=== PATIENT | male | born 1950 | race Caucasian/White ===

== ENCOUNTER 2021-04-28 10:38 | Observation (INO) | payer MEDICARE, BC ==
[~2021-04-28] VITALS: Ht 170.2 cm; Wt 77.1 kg
[~2021-04-28 10:38] MED LIST: EFFEXOR XR150 MG PO; FLOMAX0.4 MG PO; HYDROCODONE-AP1 EAC6 PO; PEPCID20 MG PO; PERCOCET PO; POTASSIUM20 PO; TENORMIN50 MG PO; ZOFRAN ODT4 MG PO
[2021-04-28 10:47] VITALS: BP 209/99
[2021-04-28 10:59] LABS: URINE BLOOD 3+ (Negative); URINE CLARITY CLEAR; URINE COLOR YELLOW; URINE GLUCOSE-RANDOM NEGATIVE (Negative); URINE KETONES NEGATIVE (Negative); URINE LEUKOCYTES-REFLEX NEGATIVE (Negative); URINE NITRITE-REFLEX NEGATIVE (Negative); URINE PROTEIN 1+ (Negative); URINE SPECIFIC GRAVITY >= 1.030 (1.005-1.030); URINE UROBILINOGEN 0.2 E.U./dl (0.2-1.0)
[2021-04-28 11:02] LABS: ICTOTEST (BILI CONFIRMATORY) Negative (Negative); URINE BILIRUBIN 1+ (Negative)
[2021-04-28 11:03] LABS: BACTERIA-REFLEX 1-9 Few /HPF (None Seen); CASTS None Seen /LPF (None Seen); CRYSTALS None Seen /LPF (None Seen); SQUAMOUS 0-3 Few /LPF (0-3); URINE RBC 0-2 Rare /HPF (0-2); URINE WBC-REFLEX 0-5 Rare /HPF (0-5)
[2021-04-28 11:10] LABS: ABSOLUTE BASOPHILS 0.1 thou/uL (0.0-0.2); ABSOLUTE EOSINOPHILS 0.1 thou/uL (0.0-0.7); ABSOLUTE LYMPHOCYTES 0.8 thou/uL (0.8-5.3); ABSOLUTE MONOCYTES 0.7 thou/uL (0.0-1.2); ABSOLUTE NEUTROPHILS 7.7 thou/uL (1.6-8.1); HEMATOCRIT 33.6 % (42.0-52.0); HEMOGLOBIN 11.3 gm/dL (14.0-18.0); LYMPHOCYTES 8.9 %; MCH 28.2 pg (26.0-34.0); MCHC 33.7 g/dL (28.0-37.0); MCV 83.9 fL (80.0-100.0); MONOCYTES 7.2 %; MPV 7.2 fl. (7.2-11.1); NUCLEATED RBCS 0 /100WBC; PLATELET COUNT* 232 thou/uL (150-400); POLYS 81.9 %; RDW-CV 14.1 % (10.5-14.5); WBC 9.4 thou/uL (4.0-11.0)
[2021-04-28 11:19] LABS: CALCIUM 8.6 mg/dL (8.5-10.1); CREATININE 1.2 mg/dL (0.6-1.3); POTASSIUM 3.7 mmol/L (3.5-5.1)
[2021-04-28 11:25] LABS: TOTAL BILIRUBIN 0.4 mg/dL (<0.1-1.0); TOTAL PROTEIN 7.3 g/dL (6.4-8.2)
[2021-04-28 14:40] VITALS: BP 172/69
[2021-04-28 14:45] VITALS: BP 175/81
[2021-04-28 15:38] VITALS: BP 175/81
[2021-04-28 20:30] VITALS: BP 143/65
[2021-04-29 03:56] VITALS: BP 143/65
[2021-04-29 04:45] LABS: HEMATOCRIT 27.8 % (42.0-52.0); HEMOGLOBIN 9.6 gm/dL (14.0-18.0); MCH 29.3 pg (26.0-34.0); MCHC 34.6 g/dL (28.0-37.0); MCV 84.7 fL (80.0-100.0); MPV 7.5 fl. (7.2-11.1); RBC 3.28 mil/uL (4.50-6.00); RDW-CV 13.8 % (10.5-14.5); WBC 8.8 thou/uL (4.0-11.0)
[2021-04-29 04:55] LABS: CALCIUM 7.9 mg/dL (8.5-10.1); CREATININE 1.4 mg/dL (0.6-1.3); POTASSIUM 3.8 mmol/L (3.5-5.1)
[2021-04-29 08:00] VITALS: BP 146/64
--- NOTE | 2021-04-29 10:54 | EKG ---
[place] [address] ELECTROCARDIOGRAM REPORT Name: SARA BARRERA Tristen JR Room: [address]R.#: [id number] Admission: 04/28/21 Attend Phys: Patricio Cornell Discharge: Date of : 46 Date of Service: 04/28/21 1102 Report #: [id number] THIS REPORT FOR: //name// [facility] ED Test Date: 2021-04-28 Test Time: 11:02:04 Pat Name: SARA BARRERA Department: Room: [facility] Gender: M Customer Relations Assistant: : 1950 Requested By: Dagoberto Kline Order Number: [id number] MD: Darrell Ivey Measurements Intervals [place] Rate: 92 P: 31 MO: 165 QRS: 17 QRSD: 86 T: 86 QT: 368 QTc: 456 Interpretive Statements Sinus rhythm Probable LVH with secondary repol abnrm Compared to ECG 12/26/2015 19:14:41 No significant changes Electronically Signed On 04-29-2021 10:54:17 CDT by Darrell Ivey [email or web address] <ELECTRONICALLY SIGNED> By: Darrell Ivey MD, FAC 04/29/21 1054 1102 1102 Darrell Ivey MD, [facility] /EPI
[2021-04-29 13:00] VITALS: BP 135/56
[2021-04-29 13:43] VITALS: BP 146/64
[2021-04-29] MEDS ORDERED: LEVSIN-SL0.125 MG SUBLING (13:52)
[2021-04-29] MEDS ORDERED: NORCO5 PO (13:53)
[2021-04-29 14:30] VITALS: BP 146/64
== END 2021-04-29 14:25 | disposition home or self-care (01) ==
LOC: M.ERS 10:38 → M.TBA-ER 13:04 → M.ORTHSURG 15:01
PROVIDERS: Emergency Medicine Emergency Medical Services; Family Medicine; ADMIT Internal Medicine; ATTEND Internal Medicine
DX: N13.2 Hydronephrosis with renal and ureteral calculous obstruction (principal); Z20.822 Contact with and (suspected) exposure to COVID-19; I10 Essential (primary) hypertension; I25.10 Atherosclerotic heart disease of native coronary artery without angina pectoris; K86.89 Other specified diseases of pancreas; M54.9 Dorsalgia, unspecified; Z98.890 Other specified postprocedural states; Z87.442 Personal history of urinary calculi